=== PATIENT | female | born 1985 | race Caucasian/White ===

== ENCOUNTER 2016-12-28 20:56 | Emergency (ER) | payer SELFPAY ==
[~2016-12-28] VITALS: Ht 157.5 cm; Wt 68.1 kg
[~2016-12-28 20:56] MED LIST: ACHYD1T PO; ASP81TEC PO; ASPI-586 PO; DIAZ10TA PO; ENXP40I.4 SQ; FAMO-119 PO; FLUO20CA42 PO; HYDR1TAB75 PO; IBP800T PO; LORA1TAB PO; LYBREL PO; METO5TAB75 PO; MULT1CAP27 PO; NAPR1TAB21 PO; OLN2.5T PO; ONDA4TAB8 SL; ONDAN4ODT PO; PHEN177S38 MT; [UNRECOGNIZED DRUG - OTHER] PO
--- NOTE | 2016-12-28 21:25 | ED GU-Female ---
General Chief Complaint: -Female Stated Complaint: 5 WEEKS /SPOTTING/ABD PAIN Nursing Triage Note: States that she is 5 weeks . Started cramping and having dark brown spotting times 5 days. Cramping has incresed and spotting is bright red Nursing Sepsis Screen: No Definite Risk Source: patient Exam Limitations: no limitations History of Present Illness Time seen by provider: 21:24 Initial Comments 31-year-old female patient presents to the emergency department complaints of suprapubic cramping and dark brown spotting for 5 days. Patient reports today has noticed increased spotting with bright red blood noted. Last menstrual period was November 24, 2016. Patient states she is scheduled to see Dr. Sands in 2 weeks. Patient does report a history of a clotting disorder. Timing/Duration: getting worse, other (5 day onset) Severity/Quality: cramping Location: suprapubic Radiation: none Activities at Onset: none Prior Genitourinary Problems: similar symptoms Sexual [place] History: less than 2 months ago, single partner Modifying Factors: Worsens With Urinating Allergies and Home Medications Allergies Coded Allergies: No Known Drug Allergies (Unverified , 12/28/16) Constitutional: No chills, No dizziness, No fever, No malaise Respiratory: no symptoms reported Cardiovascular: no symptoms reported Gastrointestinal: see HPI, abdominal pain (suprapubic) Genitourinary: see HPI, denies burning, denies discharge, denies dysuria, denies frequency, denies flank pain, pain, other (vaginal spotting) : Yes LMP: Nov 24, 2016 Musculoskeletal: no symptoms reported Skin: no symptoms reported Psychiatric/Neurological: No Symptoms Reported Hematologic/Lymphatic: See HPI All Other Systemes Reviewed Negative Unless Noted: Yes (Negative excepted noted.) Past Mhiddyv-Aciuxx-Xacncf Hx Patient Social History Alcohol Use: Denies Use Recreational Drug Use: No Smoking Status: Never a Smoker Former Smoker/When Quit: Aug 29, 2010 2nd Hand Smoke Exposure: No Recent Foreign Travel: No Contact w/Someone Who Travel: No Recent Infectious Disease Expo: No Recent Hopitalizations: No Immunizations Up To Date Tetanus Booster (TDap): Less than 5yrs PED Vaccines UTD: Yes Date of Influenza Vaccine: May 14, 2012 Surgeries HX Surgeries: Yes (appendectomy, endometrial clean out, l ankle) Surgeries: Appendectomy, Gallbladder, Orthopedic, Tonsillectomy Respiratory Hx Respiratory Disorders: No Cardiovascular Hx Cardiac Disorders: No Neurological Hx Neurological Disorders: Yes (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 Hearing Impairment: Denies Cancer Hx Cancer: No Psychosocial Hx Psychiatric Problems: Yes Behavioral Health Disorders: Depression Integumentary HX Skin/Integumentary Disorder: Yes Skin/Integumentary Disorders: Eczema Blood Transfusions Hx Blood Disorders: Yes (unknown clotting disorder) Adverse Reaction to a Blood Tr: No Reviewed Nursing Assessment Reviewed/Agree w Nursing PMH: Yes Family Medical History Significant Family History: No Pertinent Family Hx Physical Exam Vital Signs Vital Sign - Last 12Hours 12/28/16 21:10 Temp 98.6 Pulse 79 Resp 18 B/P (MAP) 132/80 Pulse Ox 100 Capillary Refill : Less Than 3 Seconds General Appearance: WD/WN, no apparent distress HEENT: PERRL/EOMI, pharynx normal Neck: supple, normal inspection Cardiovascular: normal peripheral pulses, regular rate, rhythm, no edema, no murmur Respiratory: lungs clear, normal breath sounds, no respiratory distress Gastrointestinal: normal bowel sounds, soft, no organomegaly, No distended, No guarding, No rebound, tenderness (mild tenderness suprapubic and right adnexa) Pelvic: other (deferred) Back: normal inspection, no CVA tenderness Extremities: no pedal edema, normal capillary refill Neurologic/Psychiatric: alert, normal mood/affect, oriented x 3 Skin: normal color, warm/dry Progress/Results/Core Measures Results/Orders Lab Results Laboratory Tests Test 12/28/16 21:10 12/28/16 22:00 Range/Units Urine Color YELLOW Urine Clarity CLEAR Urine pH 7 5-9 Urine Specific [place] 1.010 L 1.016-1.022 Urine Protein NEGATIVE NEGATIVE Urine Glucose (UA) NEGATIVE NEGATIVE Urine Ketones NEGATIVE NEGATIVE Urine Nitrite NEGATIVE NEGATIVE Urine Bilirubin NEGATIVE NEGATIVE Urine Urobilinogen NORMAL NORMAL MG/DL Urine Leukocyte Esterase NEGATIVE NEGATIVE Urine RBC (Auto) 1+ H NEGATIVE Urine RBC 0-2 /HPF Urine WBC NONE /HPF Urine Squamous Epithelial Cells 0-2 /HPF Urine Crystals NONE /LPF Urine Bacteria NONE /HPF Urine Casts NONE /LPF Urine Mucus NEGATIVE /LPF Urine Culture Indicated NO White Blood Count 8.8 4.3-11.0 10^3/uL Red Blood Count 4.25 L 4.35-5.85 10^6/uL Hemoglobin 12.5 11.5-16.0 G/DL Hematocrit 38 35-52 % Mean Corpuscular Volume 89 80-99 FL Mean Corpuscular Hemoglobin 29 25-34 PG Mean Corpuscular Hemoglobin Concent 33 32-36 G/DL Red Cell Distribution Width 12.8 10.0-14.5 % Platelet Count 262 130-400 10^3/uL Mean Platelet Volume 9.2 7.4-10.4 FL Neutrophils (%) (Auto) 57 42-75 % Lymphocytes (%) (Auto) 31 12-44 % Monocytes (%) (Auto) 9 0-12 % Eosinophils (%) (Auto) 2 0-10 % Basophils (%) (Auto) 0 0-10 % Neutrophils # (Auto) 5.0 1.8-7.8 X 10^3 Lymphocytes # (Auto) 2.7 1.0-4.0 X 10^3 Monocytes # (Auto) 0.8 0.0-1.0 X 10^3 Eosinophils # (Auto) 0.2 0.0-0.3 10^3/uL Basophils # (Auto) 0.0 0.0-0.1 10^3/uL Prothrombin Time 12.4 12.2-14.7 SEC INR Comment 1.0 0.8-1.4 Activated Partial Thromboplast Time 30 24-35 SEC Sodium Level 140 135-145 MMOL/L Potassium Level 3.5 L 3.6-5.0 MMOL/L Chloride Level 110 H 98-107 MMOL/L Carbon Dioxide Level 22 21-32 MMOL/L Anion Gap 8 5-14 MMOL/L Blood Urea Nitrogen 5 L 7-18 MG/DL Creatinine 0.62 0.60-1.30 MG/DL Estimat Glomerular Filtration Rate > 60 BUN/Creatinine Ratio 8 Glucose Level 101 70-105 MG/DL Calcium Level 8.9 8.5-10.1 MG/DL Total Bilirubin 0.3 0.1-1.0 MG/DL Aspartate Amino Transf (AST/SGOT) 14 5-34 U/L Alanine Aminotransferase (ALT/SGPT) 11 0-55 U/L Alkaline Phosphatase 49 40-136 U/L Total Protein 6.6 6.4-8.2 G/DL Albumin 4.2 3.2-4.5 G/DL Human Chorionic Gonadotropin, Quant 72 H <5 MIU/ML My Orders Orders - WILNER REINOSO Ua Culture If Indicated (12/28/16 21:19) Urine Bedside (12/28/16 21:28) Cbc With Automated Diff (12/28/16 21:53) Comprehensive Metabolic Panel (12/28/16 21:53) Hcg,Quantitative (12/28/16 21:53) Protime With Inr (12/28/16 21:53) Partial Thromboplastin Time (12/28/16 21:53) Acetaminophen Tablet (Tylenol Tablet) (12/28/16 22:01) Us Ob Transvaginal [id number] (12/28/16 21:19) Vital Signs/I&O Vital Sign - Last 12Hours 12/28/16 12/28/16 21:10 23:25 Temp 98.6 98.6 Pulse 79 79 Resp 18 18 B/P (MAP) 132/80 Pulse Ox 100 100 Blood Pressure Mean: 97 Diagnostic Imaging Diagonstic Imaging: Ultrasound Plain Films/CT/US/NM/MRI: pelvis Comments status unknown. Correlate. No IUP. Endometrium measures 1.3 cm. Complex follicle/lesion measuring 1.6 cm and left ovary. No torsion. The right ovary is not visualized. Reviewed: Other (statrad report reviewed by me. ) Departure Communication Progress Notes Laboratory and diagnostic findings discussed with the patient. Plan for discharge to home with follow-up as an outpatient with Dr. Sands in the next 1-2 days. Patient to call tomorrow morning for appointment time. All return precautions were discussed with the patient as described in the discharge instructions of this report. Patient voices understanding and agrees with the treatment plan. Patient case discussed with Dr. Paniagua, he agrees with the plan of care. Impression Impression: Primary Impression: Threatened miscarriage in early Disposition: 01 HOME, SELF-CARE Condition: Improved Departure-Patient Inst. Decision time for Depature: 23:11 Referrals: NO,LOCAL PHYSICIAN (PCP) Primary Care Physician TIANA SANDS MD Patient Instructions: Threatened Miscarriage (DC) Add. Discharge Instructions: All discharge instructions reviewed with patient and/or family. Voiced understanding. Tylenol extra strength [id number] as directed for pain or headache if needed. Drink plenty of fluids. No intercourse, tampons, or strenuous activity answer released by Dr. Sands. Follow-up Dr. Sands in the next 1-2 days for recheck, scheduling outpatient repeat ultrasound, and repeat labs. Return to the emergency department for worsened pain, vaginal bleeding with greater than 2 pads per hour for greater than 2 hours, vaginal discharge, inability to urinate, vomiting, fever, or any other concerns. Work/School Note: Work Release Form Date Seen in the Emergency Department: December 28, 2016 Return to Work: December 30, 2016 Other Restrictions Listed Below: No strenuous activity until released by Dr. Sands. WILNER REINOSO December 28, 2016 21:25
[2016-12-28 21:26] LABS: BILIRUBIN,URINE NEGATIVE (NEGATIVE); KETONES,URINE NEGATIVE (NEGATIVE); LEUKOCYTE ESTERASE ,URINE NEGATIVE (NEGATIVE); NITRITE,URINE NEGATIVE (NEGATIVE); PH,URINE 7 (5-9); PROTEIN,URINE NEGATIVE (NEGATIVE); UROBILINOGEN,URINE NORMAL (NORMAL)
[2016-12-28 21:33] LABS: SQUAMOUS EPITHELIAL CELL,UR 0-2 /HPF
[2016-12-28] MEDS ORDERED: ACETAMINOPHEN 500 MG TAB (TYLENOL) PO STA (22:01)
[2016-12-28 22:13] LABS: BASOPHILS % (AUTO) 0 % (0-10); EOSINOPHILS # (AUTO) 0.2 10^3/uL (0.0-0.3); EOSINOPHILS % (AUTO) 2 % (0-10); LYMPHOCYTES # (AUTO) 2.7 X 10^3 (1.0-4.0); LYMPHOCYTES % (AUTO) 31 % (12-44); MEAN CORPUSCULAR HEMOGLOBIN 29 PG (25-34); MEAN CORPUSCULAR HGB CONC 33 G/DL (32-36); MEAN CORPUSCULAR VOLUME 89 FL (80-99); MEAN PLATELET VOLUME 9.2 FL (7.4-10.4); MONOCYTES # (AUTO) 0.8 X 10^3 (0.0-1.0); MONOCYTES % (AUTO) 9 % (0-12); NEUTROPHILS % (AUTO) 57 % (42-75); PLATELET COUNT 262 10^3/uL (130-400); RED BLOOD COUNT 4.25 10^6/uL (4.35-5.85); RED CELL DISTRIBUTION WIDTH 12.8 % (10.0-14.5); WHITE BLOOD COUNT 8.8 10^3/uL (4.3-11.0)
[2016-12-28 22:22] LABS: PROTHROMBIN TIME PATIENT 12.4 SEC (12.2-14.7)
[2016-12-28 22:30] LABS: ALANINE AMINOTRANSFERASE 11 U/L (0-55); ALBUMIN 4.2 G/DL (3.2-4.5); ANION GAP 8 MMOL/L (5-14); ASPARTATE AMINO TRANSFERASE 14 U/L (5-34); BILIRUBIN,TOTAL 0.3 MG/DL (0.1-1.0); BLOOD UREA NITROGEN 5 MG/DL (7-18); BUN/CREATININE RATIO 8; CALCIUM 8.9 MG/DL (8.5-10.1); CARBON DIOXIDE 22 MMOL/L (21-32); CHLORIDE 110 MMOL/L (98-107); CREATININE SERUM 0.62 MG/DL (0.60-1.30); GFR ESTIMATED > 60; GLUCOSE 101 MG/DL (70-105); POTASSIUM 3.5 MMOL/L (3.6-5.0); SODIUM 140 MMOL/L (135-145); TOTAL PROTEIN 6.6 G/DL (6.4-8.2)
[2016-12-28 23:25] VITALS: BP 132/80
--- NOTE | 2016-12-29 08:17 | Diagnostic Imaging Report ---
EXAMINATION: Transvaginal pelvic ultrasound. INDICATION: Spotting. Cramping. Right lower quadrant pain. OB ultrasound is ordered suggestive of positive test. Beta-hCG level is not provided. FINDINGS: The uterus is 7.6 x 4 x 4.9 CM. The endometrial stripe is 1.2 CM in thickness. There is no gestational sac identified. The right ovary is obscured by bowel gas. The left ovary demonstrates color flow with Doppler and measures 2.8 x 1.8 x 3 CM. Within the left ovary there is a 1.5 cm hypoechoic lesion with peripheral vascularity may relate to a corpus luteum cyst. IMPRESSION: No intrauterine . Differential may include failed , early normal or occult ectopic . Followup serial beta-hCG levels and followup ultrasound in a week is suggested. Dictated by: Dictated on workstation # [id number]
== END 2016-12-28 23:26 | disposition home or self-care (01) ==
LOC: EDUNIT# 20:56 → ER 21:00
DX: O20.0 Threatened abortion (principal); Z3A.01 Less than 8 weeks gestation of pregnancy
CPT/HCPCS: 36415; 76817; 80053; 81000; 84702; 84703; 85025; 85610; 85730; 99282

== ENCOUNTER 2016-12-31 19:30 | Emergency (ER) | payer SELFPAY ==
[~2016-12-31] VITALS: Ht 160 cm; Wt 72.6 kg
--- NOTE | 2016-12-31 20:01 | ED GU-Female ---
General Chief Complaint: -Female Stated Complaint: VAGINAL BLEEDING/5 WEEKS Nursing Triage Note: PT TO ED 9 W/ FAMILY FOR C/O POSS MISCARRIAGE. REPORTS SEEN IN THIS ED X4 DAYS AGO FOR SAME C/O. STATES NOW PASSING CLOTS Nursing Sepsis Screen: No Definite Risk Source: patient Exam Limitations: no limitations History of Present Illness Time seen by provider: 19:53 Initial Comments Here with report of increased vaginal bleeding today. Patient was seen a few days ago for the same and had ultrasound done. This did not show intrauterine but the quantitative hCG level was very low. She notes that she has had increasing bleeding and clots today. She is concerned about miscarriage. She does have lower bowel cramping right greater than left. She states that the bleeding has actually decreased some now. Timing/Duration: getting worse Severity/Quality: mild, moderate, cramping Location: RLQ, LLQ, suprapubic Radiation: none Activities at Onset: none Sexual [place] History: less than 2 months ago, single partner Associated Symptoms: abdominal pain, No fever/chills, No nausea/vomiting, No urinary frequency Allergies and Home Medications Allergies Coded Allergies: No Known Drug Allergies (Unverified , 12/28/16) Constitutional: see HPI, No chills, No fever Respiratory: no symptoms reported Cardiovascular: no symptoms reported Gastrointestinal: see HPI, No nausea, No vomiting Genitourinary: see HPI : Yes Musculoskeletal: no symptoms reported Skin: no symptoms reported Past Zoprjjn-Nbpzqx-Hyzbdt Hx Patient Social History Alcohol Use: Denies Use Recreational Drug Use: No Smoking Status: Never a Smoker Former Smoker/When Quit: Aug 29, 2010 2nd Hand Smoke Exposure: No Recent Foreign Travel: No Contact w/Someone Who Travel: No Recent Infectious Disease Expo: No Recent Hopitalizations: No Immunizations Up To Date Tetanus Booster (TDap): Less than 5yrs PED Vaccines UTD: Yes Date of Influenza Vaccine: May 14, 2012 Surgeries HX Surgeries: Yes (appendectomy, endometrial clean out, l ankle) Surgeries: Adenoidectomy, Appendectomy, Gallbladder, Orthopedic, Tonsillectomy Respiratory Hx Respiratory Disorders: No Cardiovascular Hx Cardiac Disorders: No Neurological Hx Neurological Disorders: Yes (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 Hearing Impairment: Denies Cancer Hx Cancer: No Psychosocial Hx Psychiatric Problems: Yes Behavioral Health Disorders: Depression Integumentary HX Skin/Integumentary Disorder: Yes Skin/Integumentary Disorders: Eczema Blood Transfusions Hx Blood Disorders: Yes (unknown clotting disorder) Adverse Reaction to a Blood Tr: No Reviewed Nursing Assessment Reviewed/Agree w Nursing PMH: Yes Family Medical History Significant Family History: No Pertinent Family Hx Physical Exam Vital Signs Vital Sign - Last 12Hours 12/31/16 19:36 Temp 99.2 Pulse 82 Resp 20 B/P (MAP) 115/79 Pulse Ox 99 O2 Delivery Room Air Capillary Refill : Less Than 3 Seconds General Appearance: WD/WN, no apparent distress Neck: full range of motion, supple Cardiovascular: regular rate, rhythm, no murmur Respiratory: lungs clear, normal breath sounds Gastrointestinal: non tender, soft Pelvic: normal external exam, normal adnexa, no cerv. motion tender, No discharge, No lesions, No mass, vaginal bleeding Back: normal inspection, no CVA tenderness, no vertebral tenderness Extremities: non-tender, normal inspection Neurologic/Psychiatric: alert, oriented x 3 Skin: normal color, warm/dry Progress/Results/Core Measures Results/Orders Lab Results Laboratory Tests Test 12/31/16 19:53 12/31/16 20:13 12/31/16 20:29 Range/Units White Blood Count 9.3 4.3-11.0 10^3/uL Red Blood Count 4.39 4.35-5.85 10^6/uL Hemoglobin 13.0 11.5-16.0 G/DL Hematocrit 40 35-52 % Mean Corpuscular Volume 90 80-99 FL Mean Corpuscular Hemoglobin 30 25-34 PG Mean Corpuscular Hemoglobin Concent 33 32-36 G/DL Red Cell Distribution Width 12.7 10.0-14.5 % Platelet Count 271 130-400 10^3/uL Mean Platelet Volume 9.5 7.4-10.4 FL Neutrophils (%) (Auto) 57 42-75 % Lymphocytes (%) (Auto) 32 12-44 % Monocytes (%) (Auto) 8 0-12 % Eosinophils (%) (Auto) 3 0-10 % Basophils (%) (Auto) 0 0-10 % Neutrophils # (Auto) 5.3 1.8-7.8 X 10^3 Lymphocytes # (Auto) 3.0 1.0-4.0 X 10^3 Monocytes # (Auto) 0.7 0.0-1.0 X 10^3 Eosinophils # (Auto) 0.3 0.0-0.3 10^3/uL Basophils # (Auto) 0.0 0.0-0.1 10^3/uL Sodium Level 142 135-145 MMOL/L Potassium Level 3.4 L 3.6-5.0 MMOL/L Chloride Level 108 H 98-107 MMOL/L Carbon Dioxide Level 24 21-32 MMOL/L Anion Gap 10 5-14 MMOL/L Blood Urea Nitrogen 7 7-18 MG/DL Creatinine 0.69 0.60-1.30 MG/DL Estimat Glomerular Filtration Rate > 60 BUN/Creatinine Ratio 10 Glucose Level 98 70-105 MG/DL Calcium Level 8.6 8.5-10.1 MG/DL Total Bilirubin 0.2 0.1-1.0 MG/DL Aspartate Amino Transf (AST/SGOT) 11 5-34 U/L Alanine Aminotransferase (ALT/SGPT) 7 0-55 U/L Alkaline Phosphatase 55 40-136 U/L Total Protein 6.7 6.4-8.2 G/DL Albumin 4.2 3.2-4.5 G/DL Human Chorionic Gonadotropin, Quant 20 H <5 MIU/ML Urine Color YELLOW Urine Clarity SLIGHTLY CLOUDY Urine pH 7 5-9 Urine Specific [place] 1.005 L 1.016-1.022 Urine Protein 1+ H NEGATIVE Urine Glucose (UA) NEGATIVE NEGATIVE Urine Ketones NEGATIVE NEGATIVE Urine Nitrite NEGATIVE NEGATIVE Urine Bilirubin NEGATIVE NEGATIVE Urine Urobilinogen NORMAL NORMAL MG/DL Urine Leukocyte Esterase 1+ H NEGATIVE Urine RBC (Auto) 5+ H NEGATIVE Urine RBC 50-100 H /HPF Urine WBC 2-5 /HPF Urine Squamous Epithelial Cells 2-5 /HPF Urine Crystals NONE /LPF Urine Bacteria FEW H /HPF Urine Casts NONE /LPF Urine Mucus NEGATIVE /LPF Urine Culture Indicated NO My Orders Orders - SHAUN DO MD Cbc With Automated Diff (12/31/16 19:48) Comprehensive Metabolic Panel (12/31/16 19:48) Hcg,Quantitative (12/31/16 19:48) Ua Culture If Indicated (12/31/16 20:01) Wet Prep (12/31/16 20:20) Neisseria Gonorrhea Dna (12/31/16 20:20) Chlamydia Dna (12/31/16 20:20) Genital Culture (12/31/16 20:20) Vital Signs/I&O Vital Sign - Last 12Hours 12/31/16 19:36 Temp 99.2 Pulse 82 Resp 20 B/P (MAP) 115/79 Pulse Ox 99 O2 Delivery Room Air Blood Pressure Mean: 91 Progress Note : Progress Note Seen and evaluated. Labs and UA ordered. Ultrasound results reviewed as well as previous visit labs. Monitor patient. Anticipate pelvic exam. This was completed. 2044: No significant findings on wet prep. Quantitative has decreased to 20. This is likely miscarriage. Discharged home with return precautions. Patient verbalize understanding instructions and agreement with plan. Departure Impression Impression: Primary Impression: Miscarriage Disposition: HOME, SELF-CARE Condition: Improved Departure-Patient Inst. Decision time for Depature: 20:51 Referrals: NO,LOCAL PHYSICIAN (PCP) Primary Care Physician Patient Instructions: Miscarriage (DC) Add. Discharge Instructions: All discharge instructions reviewed with patient and/or family. Voiced understanding. You may take ibuprofen 800 mg every 8 hours as needed for pain. You may take Tylenol 1000 mg every 8 hours as needed for pain. Follow-up with your OB doctor in a few days for recheck and further evaluation. Return for worse pain , fever, vomiting, weakness, bleeding greater than 2 pads per hour for more than 2 hours or other concerns as needed. SHAUN DO MD December 31, 2016 20:01
[2016-12-31 20:15] LABS: BASOPHILS % (AUTO) 0 % (0-10); EOSINOPHILS # (AUTO) 0.3 10^3/uL (0.0-0.3); EOSINOPHILS % (AUTO) 3 % (0-10); LYMPHOCYTES % (AUTO) 32 % (12-44); MEAN CORPUSCULAR HEMOGLOBIN 30 PG (25-34); MEAN CORPUSCULAR HGB CONC 33 G/DL (32-36); MEAN CORPUSCULAR VOLUME 90 FL (80-99); MEAN PLATELET VOLUME 9.5 FL (7.4-10.4); MONOCYTES # (AUTO) 0.7 X 10^3 (0.0-1.0); MONOCYTES % (AUTO) 8 % (0-12); NEUTROPHILS # (AUTO) 5.3 X 10^3 (1.8-7.8); NEUTROPHILS % (AUTO) 57 % (42-75); PLATELET COUNT 271 10^3/uL (130-400); RED BLOOD COUNT 4.39 10^6/uL (4.35-5.85); RED CELL DISTRIBUTION WIDTH 12.7 % (10.0-14.5); WHITE BLOOD COUNT 9.3 10^3/uL (4.3-11.0)
[2016-12-31 20:17] LABS: ALANINE AMINOTRANSFERASE 7 U/L (0-55); ALBUMIN 4.2 G/DL (3.2-4.5); ANION GAP 10 MMOL/L (5-14); ASPARTATE AMINO TRANSFERASE 11 U/L (5-34); BILIRUBIN,TOTAL 0.2 MG/DL (0.1-1.0); BLOOD UREA NITROGEN 7 MG/DL (7-18); BUN/CREATININE RATIO 10; CALCIUM 8.6 MG/DL (8.5-10.1); CARBON DIOXIDE 24 MMOL/L (21-32); CHLORIDE 108 MMOL/L (98-107); CREATININE SERUM 0.69 MG/DL (0.60-1.30); GFR ESTIMATED > 60; GLUCOSE 98 MG/DL (70-105); POTASSIUM 3.4 MMOL/L (3.6-5.0); SODIUM 142 MMOL/L (135-145); TOTAL PROTEIN 6.7 G/DL (6.4-8.2)
[2016-12-31 20:21] LABS: BILIRUBIN,URINE NEGATIVE (NEGATIVE); KETONES,URINE NEGATIVE (NEGATIVE); LEUKOCYTE ESTERASE ,URINE 1+ (NEGATIVE); NITRITE,URINE NEGATIVE (NEGATIVE); PH,URINE 7 (5-9); PROTEIN,URINE 1+ (NEGATIVE); UROBILINOGEN,URINE NORMAL (NORMAL)
[2016-12-31 20:57] VITALS: BP 113/84
== END 2016-12-31 20:57 | disposition home or self-care (01) ==
LOC: EDUNIT# 19:30 → ER 19:32
DX: O20.0 Threatened abortion (principal); Z3A.01 Less than 8 weeks gestation of pregnancy
CPT/HCPCS: 36415; 80053; 81000; 84702; 85025; 87070; 87210; 87491; 87591; 99284

== ENCOUNTER 2017-03-13 17:22 | Emergency (ER) | payer BC, OTHER ==
[~2017-03-13] VITALS: Ht 157.5 cm; Wt 72.6 kg
[2017-03-13] MEDS ORDERED: HYDROcodone/APAP 5 MG/325 MG (LORTAB) TAB ONE (19:48)
[2017-03-13] MEDS ORDERED: HYDROcodone/APAP 5 MG/325 MG (LORTAB) TAB PO ONE (20:00)
[2017-03-13] MEDS ORDERED: HYDR-3812 PO (20:20)
--- NOTE | 2017-03-13 20:20 | ED EENT ---
History of Present Illness General Chief Complaint: Dental Problems/Pain Stated Complaint: JAW SWELLING Nursing Triage Note: pt reports left/middle lower dental pain starting Monday. Started amoxicillin yesterday. Worse today, difficulty eating et drinking. She reports she chipped her tooth grinding them in her sleep. Source: patient Exam Limitations: no limitations History of Present Illness Time seen by provider: 19:43 Initial Comments This 31-year-old young lady presents to the emergency room with left lower anterior dental pain and suspected abscess. She started amoxicillin yesterday as prescribed by her father who is a physician. She has some chipped teeth due to grinding. The pain is rather intense today and she is having difficulty eating and drinking. She denies any fever. She has not yet seen a dentist. She has been taking Tylenol 3 and ibuprofen with insufficient relief. Allergies and Home Medications Allergies Coded Allergies: No Known Drug Allergies (Unverified , 12/28/16) Home Medications Hydrocodone/Acetaminophen 1 Each Tablet, 1 EACH PO Q6H PRN for PAIN, #10 Prescribed by: PETE WISEMAN on 03/13/172019 Review of Systems Constitutional: no symptoms reported Eyes: No Symptoms Reported Ears: No Symptoms Reported Nose: no symptoms reported Mouth: see HPI Throat: no symptoms reported Respiratory: no symptoms reported Cardiovascular: no symptoms reported Gastrointestinal: no symptoms reported : No Musculoskeletal: no symptoms reported Skin: no symptoms reported Neurological: No Symptoms Reported Past Eigqcll-Npoioh-Umvbxq Hx Patient Social History Alcohol Use: Denies Use Recreational Drug Use: No Smoking Status: Never a Smoker Former Smoker/When Quit: Aug 29, 2010 2nd Hand Smoke Exposure: No Recent Foreign Travel: No Contact w/Someone Who Travel: No Recent Infectious Disease Expo: No Recent Hopitalizations: No Immunizations Up To Date Tetanus Booster (TDap): Less than 5yrs PED Vaccines UTD: Yes Date of Influenza Vaccine: May 14, 2012 Seasonal Allergies Seasonal Allergies: No Surgeries HX Surgeries: Yes (appendectomy, endometrial clean out, l ankle) Surgeries: Adenoidectomy, Appendectomy, Gallbladder, Orthopedic, Tonsillectomy Respiratory Hx Respiratory Disorders: No Cardiovascular Hx Cardiac Disorders: No Neurological Hx Neurological Disorders: Yes (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 Hearing Impairment: Denies Cancer Hx Cancer: No Psychosocial Hx Psychiatric Problems: Yes Behavioral Health Disorders: Depression Integumentary HX Skin/Integumentary Disorder: Yes Skin/Integumentary Disorders: Eczema Blood Transfusions Hx Blood Disorders: Yes (factor V Leiden) Adverse Reaction to a Blood Tr: No Family Medical History Significant Family History: No Pertinent Family Hx Physical Exam Vital Signs Vital Sign - Last 12Hours 03/13/17 03/13/17 18:02 20:23 Temp 98.2 Pulse 107 Resp 14 B/P (MAP) 101/68 Pulse Ox 95 O2 Delivery Room Air General Appearance: WD/WN, no apparent distress Nose: normal inspection Mouth/Throat: pharynx normal, dental tenderness, other (palpable abscess on the anterior left lower gingiva) Neck: supple, normal inspection, No lymphadenopathy (R), No lymphadenopathy (L) Cardiovascular: regular rate, rhythm, no edema, no murmur Respiratory: lungs clear, normal breath sounds, no respiratory distress, no accessory muscle use Neurologic/Psychiatric: fur polisher II-XII nml as tested, no motor/sensory deficits, alert, normal mood/affect, oriented x 3 Skin: normal color, warm/dry I&D : Blade Size: 11 Progress Patient was locally anesthetized with approximately one mL of lidocaine with epinephrine. A tiny incision was placed directly over the area of maximal fluctuance of the abscess. A noticeable amount of thin purulent drainage was expressed from the incision. Patient tolerated the procedure reasonably well. Progress/Results/Core Measures Results/Orders My Orders Orders - PETE MENSAH MD Hydrocodone/Apap 5/325 Tablet (Lortab 5 (03/13/17 20:00) Hydrocodone/Apap 5/325 Tablet (Lortab 5 (03/13/17 19:48) Wound Culture (03/13/17 20:05) Medications Given in ED Vital Signs/I&O Blood Pressure Mean: 79 Progress Note : Progress Note Incision and drainage was performed. Patient was given hydrocodone for pain. Culture was collected. Departure Impression Impression: Primary Impression: Dental abscess Additional Impression: Encounter for incision and drainage procedure Disposition: HOME, SELF-CARE Condition: Improved Departure-Patient Inst. Decision time for Depature: 20:05 Referrals: KRISTEN GRANT MD (PCP/Family) Primary Care Physician Patient Instructions: Tooth Abscess (DC) Add. Discharge Instructions: For your next dose of amoxicillin please take 1000 mg. Then continue as prescribed. You may take ibuprofen up to 600 mg every 6 hours as needed. Add hydrocodone for pain not controlled by ibuprofen. See a dentist as soon as possible. Return to care if symptoms are worsening. All discharge instructions reviewed with patient and/or family. Voiced understanding. Scripts Hydrocodone/Acetaminophen (Hydrocodon -Acetaminophen 5-325) 1 Each Tablet 1 EACH PO Q6H Y for PAIN, #10 TAB Prov: PETE MENSAH MD 03/13/17 PETE MENSAH MD Mar 13, 2017 20:20
[2017-03-13 20:23] VITALS: BP 106/67
== END 2017-03-13 20:23 | disposition home or self-care (01) ==
LOC: EDUNIT# 17:22 → ER 17:23
DX: K04.7 Periapical abscess without sinus (principal); F32.9 Major depressive disorder, single episode, unspecified; Z90.49 Acquired absence of other specified parts of digestive tract; Z86.73 Personal history of transient ischemic attack (TIA), and cerebral infarction without residual deficits
CPT/HCPCS: 87070; 87205; 99283

== ENCOUNTER 2017-04-04 07:59 | Emergency (ER) | payer BC ==
[~2017-04-04] VITALS: Ht 157.5 cm; Wt 71.7 kg
[~2017-04-04 07:59] MED LIST changes: +HYDR-3812 PO
[2017-04-04 09:19] LABS: BASOPHILS % (AUTO) 0 % (0-10); EOSINOPHILS # (AUTO) 0.1 10^3/uL (0.0-0.3); EOSINOPHILS % (AUTO) 2 % (0-10); LYMPHOCYTES # (AUTO) 1.6 X 10^3 (1.0-4.0); LYMPHOCYTES % (AUTO) 21 % (12-44); MEAN CORPUSCULAR HEMOGLOBIN 29 PG (25-34); MEAN CORPUSCULAR HGB CONC 33 G/DL (32-36); MEAN CORPUSCULAR VOLUME 89 FL (80-99); MEAN PLATELET VOLUME 9.3 FL (7.4-10.4); MONOCYTES # (AUTO) 0.6 X 10^3 (0.0-1.0); MONOCYTES % (AUTO) 7 % (0-12); NEUTROPHILS # (AUTO) 5.5 X 10^3 (1.8-7.8); NEUTROPHILS % (AUTO) 70 % (42-75); PLATELET COUNT 263 10^3/uL (130-400); RED BLOOD COUNT 4.38 10^6/uL (4.35-5.85); RED CELL DISTRIBUTION WIDTH 12.8 % (10.0-14.5); WHITE BLOOD COUNT 7.9 10^3/uL (4.3-11.0)
--- NOTE | 2017-04-04 09:23 | Diagnostic Imaging Report ---
CLINICAL INDICATION: Patient with calf pain, headache, and history of clot behind eye. COMPARISON: None. PROCEDURE: Real-time left lower extremity venous Doppler duplex evaluation is performed from the inguinal region through the popliteal fossa. The calf venous structures are also evaluated. Findings: The deep venous system is well visualized and is easily compressible. There is no evidence of deep venous thrombosis, valvular incompetence, or significant collateral circulation. Impression: There is no ultrasound Doppler evidence of deep venous thrombosis in the left lower extremity. Dictated by: Dictated on workstation # [id number]
[2017-04-04 09:32] LABS: INR 0.9 (0.8-1.4); PROTHROMBIN TIME PATIENT 12.2 SEC (12.2-14.7)
[2017-04-04 09:37] LABS: ANION GAP 8 MMOL/L (5-14); BLOOD UREA NITROGEN 9 MG/DL (7-18); BUN/CREATININE RATIO 15; CALCIUM 9.1 MG/DL (8.5-10.1); CARBON DIOXIDE 23 MMOL/L (21-32); CHLORIDE 109 MMOL/L (98-107); CREATININE SERUM 0.59 MG/DL (0.60-1.30); GFR ESTIMATED > 60; GLUCOSE 92 MG/DL (70-105); POTASSIUM 3.8 MMOL/L (3.6-5.0); SODIUM 140 MMOL/L (135-145)
--- NOTE | 2017-04-04 10:24 | Diagnostic Imaging Report ---
CLINICAL INDICATION: Patient with headaches behind both eyes radiating to back of head. EXAM: Axial CT scan of brain performed without IV contrast. COMPARISON: MRI of the brain performed without and with IV contrast dated 12/15/2010. FINDINGS: There is no evidence of acute cerebral infarct, intracranial hemorrhage, or gross mass effect. There is normal mcghee-white matter distinction. The brain parenchymal volume appears appropriate for patient's age. There is no significant midline shift or herniation. There is no evidence of hydrocephalus. The basal cisterns are unremarkable. The skull, extracranial soft tissue, and orbits are unremarkable. The paranasal sinuses are unremarkable. IMPRESSION: Unremarkable CT scan of the brain. Dictated by: Dictated on workstation # [id number]
[2017-04-04] MEDS ORDERED: ONDA4TAB8 PO (10:36)
[2017-04-04] MEDS ORDERED: KETO10TA PO (10:36)
[2017-04-04] MEDS ORDERED: BUTA1CAP45 PO (10:36)
--- NOTE | 2017-04-04 10:36 | ED General ---
General Chief Complaint: Lower Extremity Stated Complaint: HEADACHE,LEFT CALF PAIN Nursing Triage Note: PT C/O L CALF PAIN SINCE LAST NOC. SHE REPORTS HX OF DVT'S. SHE STATES SHE IS CONCERNED FOR CLOT SHE HAS FACTOR V LEIDEN. SHE ALSO C/O STARK X 2 DAYS. Nursing Sepsis Screen: No Definite Risk Source of Information: Patient History of Present Illness Time Seen by Provider: 08:15 Initial Comments PT C/O LEFT CALF PAIN SINCE LAST PM PT HAS HX OF DVT'S TO LEGS, WITH HX OF FACTOR 5 LEIDEN DEFICIENCY PT STATES HER DR TOLD HER TO STOP TAKING ASPIRIN 2 WEEKS AGO--"DIDN'T THINK IT WOULD HELP" NO NEW RX GIVEN FOR PREVENTION OF DVT'S NO PARESTHESIAS OR MOTOR DEFICITS NO NEW/UNUSUAL ACTIVITIES, NO PROLONGED TRAVEL OR SITTING PT ALSO C/O HEADACHE X 2 DAYS HEADACHE IS BEHIND BOTH EYES AND RADIATES THROUGH TO OCCIPITAL AREA STATES SHE HAS HAD ONGOING PROBLEMS WITH HEADACHES FOR SEVERAL MONTHS, BUT WORSE X 2 DAYS HAS NOT TAKEN ANYTHING FOR PAIN TODAY, BUT TOOK TYLENOL #3 YESTERDAY WITHOUT IMPROVEMENT. STATES HEADACHES ARE BETTER/GO AWAY ON STANDING, AND ARE WORSE WITH SITTING NO LIGHT OR SOUND SENSITIVITY NO NAUSEA/VOMITING NO VISION CHANGES NO PARESTHESIAS OR MOTOR DEFICITS NO NECK PAIN OR STIFFNESS NO FEVER OR RECENT ILLNESS, URI/SINUS SYMPTOMS, ETC. NO DIZZINESS PCP: DR. Radha GRANT PT'S FATHER IS DR. FISCHER Allergies and Home Medications Allergies Coded Allergies: No Known Drug Allergies (Unverified , 12/28/16) Home Medications Butalb/Acetaminophen/Caffeine 1 Each Capsule, 1-2 EACH PO Q6H PRN for HEADACHE, #10 Prescribed by: RANI PHIPPS on 04/04/17 1036 Hydrocodone/Acetaminophen 1 Each Tablet, 1 EACH PO Q6H PRN for PAIN, #10 Prescribed by: PETE WISEMAN on 03/13/17 2020 Ketorolac Tromethamine 10 Mg Tablet, 10 MG PO Q6H, #15 Prescribed by: RANI PHIPPS on 04/04/17 1036 Ondansetron 4 Mg Tab.rapdis, 4 MG PO Q4H, #10 Prescribed by: RANI PHIPPS on 04/04/17 1036 Constitutional: No dizziness, No fever EENTM: see HPI Respiratory: no symptoms reported Cardiovascular: no symptoms reported Gastrointestinal: no symptoms reported Genitourinary: no symptoms reported : No LMP: Mar 28, 2017 (NO CONTROL) Musculoskeletal: see HPI Skin: no symptoms reported Psychiatric/Neurological: See HPI, Headache, Denies Numbness, Denies Paresthesia, Denies Seizure, Denies Tingling, Denies Tremors, Denies Weakness Hematologic/Lymphatic: See HPI Immunological/Allergic: no symptoms reported Past Mvzhacz-Xkmpvo-Hzpgpt Hx Patient Social History Alcohol Use: Rarely Uses Recreational Drug Use: No Smoking Status: Former Smoker Type Used: Cigarettes 2nd Hand Smoke Exposure: No Recent Foreign Travel: No Contact w/Someone Who Travel: No Recent Infectious Disease Expo: No Recent Hopitalizations: No Physical Abuse: No Sexual Abuse: No Immunizations Up To Date Tetanus Booster (TDap): Less than 5yrs PED Vaccines UTD: Yes Date of Influenza Vaccine: May 14, 2012 Seasonal Allergies Seasonal Allergies: No Surgeries History of Surgeries: Yes (endometrial clean out X 3; LAPAROSCOPIES, LYSIS OF ENDOMETRIOSIS; D&C'S) Surgeries: Adenoidectomy, Appendectomy, Gallbladder, Orthopedic, Tonsillectomy Respiratory History of Respiratory Disorde: No Cardiovascular History of Cardiac Disorders: Yes Cardiac Disorders: Deep Vein Thrombosis Neurological History of Neurological Disord: Yes (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 ) Neurological Disorders: Stroke Reproductive System : No Hx Reproductive Disorders: Yes (ENDOMETRIOSIS; CHRONIC PELVIC PAIN AND DUB) Sexually Transmitted Disease: No HIV/AIDS: No Female Reproductive Disorders: Denies, Endometriosis Genitourinary History of Genitourinary Disor: No Gastrointestinal History of Gastrointestinal Di: No Musculoskeletal History of Musculoskeletal Dis: No Endocrine History of Endocrine Disorders: No HEENT History of HEENT Disorders: No Loss of Vision: Left Hearing Impairment: Denies Cancer History of Cancer: No Psychosocial History of Psychiatric Problem: Yes Behavioral Health Disorders: Depression Suicide Risk Score: 0 Integumentary History of Skin or Integumenta: Yes Skin/Integumentary Disorders: Eczema Blood Transfusions History of Blood Disorders: Yes (factor V Leiden WITH DVT'S ) Adverse Reaction to a Blood Tr: No Family Medical History Significant Family History: No Pertinent Family Hx Physical Exam Vital Signs Vital Sign - Last 12Hours 04/04/17 08:12 Temp 98.1 Pulse 92 Resp 16 B/P (MAP) 122/85 Pulse Ox 97 O2 Delivery Room Air Capillary Refill : Less Than 3 Seconds General Appearance: No Apparent Distress, WD/WN HEENT: PERRL/EOMI, TMs Normal, Normal ENT Inspection, Pharynx Normal Neck: Full Range of Motion, Supple, Tender Lateral (MILD TENDERNESS AND MUSCLE SPASMS TO CERVICAL PARAVERTEBRAL MUSCLES. ), Other (FULL ROM, NO RIGIDITY) Respiratory: Normal Breath Sounds, No Accessory Muscle Use, No Respiratory Distress Cardiovascular: Regular Rate, Rhythm, No Edema, No JVD, No Murmur, Normal Peripheral Pulses Gastrointestinal: Non Tender, Soft Extremity: Normal Capillary Refill, Normal Inspection, Normal Range of Motion, No Pedal Edema, Calf Tenderness (ON LEFT), No Swelling Neurologic/Psychiatric: Alert, Oriented x3 Skin: Normal Color, Warm/Dry Progress/Results/Core Measures Results/Orders Lab Results Laboratory Tests Test 04/04/17 09:12 Range/Units White Blood Count 7.9 4.3-11.0 10^3/uL Red Blood Count 4.38 4.35-5.85 10^6/uL Hemoglobin 12.7 11.5-16.0 G/DL Hematocrit 39 35-52 % Mean Corpuscular Volume 89 80-99 FL Mean Corpuscular Hemoglobin 29 25-34 PG Mean Corpuscular Hemoglobin Concent 33 32-36 G/DL Red Cell Distribution Width 12.8 10.0-14.5 % Platelet Count 263 130-400 10^3/uL Mean Platelet Volume 9.3 7.4-10.4 FL Neutrophils (%) (Auto) 70 42-75 % Lymphocytes (%) (Auto) 21 12-44 % Monocytes (%) (Auto) 7 0-12 % Eosinophils (%) (Auto) 2 0-10 % Basophils (%) (Auto) 0 0-10 % Neutrophils # (Auto) 5.5 1.8-7.8 X 10^3 Lymphocytes # (Auto) 1.6 1.0-4.0 X 10^3 Monocytes # (Auto) 0.6 0.0-1.0 X 10^3 Eosinophils # (Auto) 0.1 0.0-0.3 10^3/uL Basophils # (Auto) 0.0 0.0-0.1 10^3/uL Prothrombin Time 12.2 12.2-14.7 SEC INR Comment 0.9 0.8-1.4 Activated Partial Thromboplast Time 31 24-35 SEC Sodium Level 140 135-145 MMOL/L Potassium Level 3.8 3.6-5.0 MMOL/L Chloride Level 109 H 98-107 MMOL/L Carbon Dioxide Level 23 21-32 MMOL/L Anion Gap 8 5-14 MMOL/L Blood Urea Nitrogen 9 7-18 MG/DL Creatinine 0.59 L 0.60-1.30 MG/DL Estimat Glomerular Filtration Rate > 60 BUN/Creatinine Ratio 15 Glucose Level 92 70-105 MG/DL Calcium Level 9.1 8.5-10.1 MG/DL Serum Test, Qualitative NEGATIVE NEGATIVE My Orders Orders - RANI PHIPPS DO Basic Metabolic Panel (04/04/17 08:22) Cbc With Automated Diff (04/04/17 08:22) Hcg,Qualitative Serum (04/04/17 08:22) Protime With Inr (04/04/17 08:22) Partial Thromboplastin Time (04/04/17 08:22) Us Venous Lower Ext Lt (04/04/17 08:22) Ct Head Wo (04/04/17 08:22) Ketorolac Injection (Toradol Injection) (04/04/17 10:45) Medications Given in ED Current Medications Medications Dose Ordered Sig/Pam Route Start Time Stop Time Status Last Admin Dose Admin Ketorolac Tromethamine 60 mg ONCE ONCE IM 04/04/17 10:45 04/04/17 10:46 DC 04/04/17 10:45 60 MG Vital Signs/I&O Vital Sign - Last 12Hours 04/04/17 04/04/17 08:12 10:49 Temp 98.1 98.1 Pulse 92 85 Resp 16 16 B/P (MAP) 122/85 Pulse Ox 97 97 O2 Delivery Room Air Blood Pressure Mean: 97 Progress Note : Progress Note NO DETERIORATION IN PT'S CONDITION DURING ER STAY Diagnostic Imaging Comments VENOUS DOPPLER/ULTRASOUND LEFT LEG--NO DVT, PER RADIOLOGIST REPORT @ 0924 CT HEAD--NO ACUTE PROCESS, PER RADIOLOGIST REPORT @ 1031 Reviewed: Reviewed by Me Departure Impression Impression: Primary Impression: Headache Additional Impression: Pain of left calf Disposition: HOME, SELF-CARE Condition: Stable Departure-Patient Inst. Referrals: KRISTEN GRANT MD (PCP/Family) Primary Care Physician Patient Instructions: Headache, Adult (DC), Muscle and Bone Pain (DC) Add. Discharge Instructions: ALTERNATE ICE AND HEAT TO LEG NEEDED FOR COMFORT ACTIVITIES TOLERATED FOLLOW UP WITH DR. GRANT NEXT WEEK FOR FURTHER CARE All discharge instructions reviewed with patient and/or family. Voiced understanding. Scripts Ondansetron (Zofran Odt) 4 Mg Tab.rapdis 4 MG PO Q4H for Nausea/Vomiting, #10 TAB Prov: RANI PHIPPS DO 04/04/17 Ketorolac Tromethamine (Ketorolac Tromethamine) 10 Mg Tablet 10 MG PO Q6H for Pain, #15 TAB Prov: RANI PHIPPS DO 04/04/17 Butalb/Acetaminophen/Caffeine (Esgic Capsule) 1 Each Capsule 1-2 EACH PO Q6H Y for HEADACHE, #10 CAP Prov: RANI PHIPPS DO 04/04/17 RANI PHIPPS DO Apr 04, 2017 10:36
[2017-04-04] MEDS ORDERED: KETOROLAC 60 MG/2 ML VIAL IM ONE (10:45)
[2017-04-04 10:49] VITALS: BP 124/80
== END 2017-04-04 10:49 | disposition home or self-care (01) ==
LOC: EDUNIT# 07:59 → ER 08:02
DX: M79.662 Pain in left lower leg (principal); R51 Headache; F32.9 Major depressive disorder, single episode, unspecified; Z87.891 Personal history of nicotine dependence; Z90.49 Acquired absence of other specified parts of digestive tract; Z90.89 Acquired absence of other organs; Z86.718 Personal history of other venous thrombosis and embolism; Z86.73 Personal history of transient ischemic attack (TIA), and cerebral infarction without residual deficits; Z87.448 Personal history of other diseases of urinary system
CPT/HCPCS: 36415; 70450; 80048; 84703; 85025; 85610; 85730; 96372; 99284

== ENCOUNTER 2020-06-08 07:00 | Inpatient (IN) | payer MEDICAID ==
[~2020-06-08] VITALS: Ht 157.5 cm; Wt 85.5 kg
[2020-06-08] VITALS (52 sets, daily range): BP systolic 88–142; BP diastolic 50–78
[~2020-06-08 07:00] MED LIST changes: +ACHD5005 PO; +BUTA1CAP45 PO; -HYDR-3812 PO; +KETO10TA PO; +ONDA4TAB8 PO
--- NOTE | 2020-06-08 07:05 | NUR ---
UZAIR FISCHER presented to unit via ambulation from ED, accompanied by , for schedule IOL. Pt. weighed, gowned, voided, and to bed. EFHM and TOCO applied, VS taken. Pt. oriented to bed controls, call light, TV, heat, and A/C controls.
--- NOTE | 2020-06-08 07:33 | NUR ---
#20 IV to Rt.wrist x1 attempt by this RN. site patent, secured with opsite. admission labs collected prior to IVF's infusing. pt tolerated well.
[2020-06-08] MEDS ORDERED: OXYTOCIN PRE-MIX DRIP 500 ML IV SCH ×2 (07:43→18:37)
--- NOTE | 2020-06-08 07:43 | History & Physical ---
History and Physical Date Seen by Provider: Jun 08, 2020 Time Seen by Provider: 07:41 this patient is a 34-year-old 2 para 1 white female currently at 38 weeks gestation. She presents for induction of labor secondary to history of optic stroke and currently maintained on Lovenox. She denies rupture membranes or bleeding she's had no problems with his to date. Her GBS culture negative. Allergies are none Medications are vitamins Medical social and surgical histories are per the antepartum record HEENT exam is normal Neck is supple no lymphadenopathy and no thyromegaly Abdomen is gravid soft nontender nondistended Extremities show no clubbing cyanosis. There is no Homans sign. 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 She had her last dose of Lovenox yesterday morning in preparation for induction of labor today patient has had a vaginal delivery with her previous with anticipate a vaginal delivery with this induction 38 weeks admitted for induction of labor due to chronic anticoagulation and a history of optic stroke Allergies and Home Medications Allergies Coded Allergies: No Known Drug Allergies (Unverified , 12/28/16) Home Medications Butalb/Acetaminophen/Caffeine 1 Each Capsule, 1-2 EACH PO Q6H PRN for HEADACHE Prescribed by: RANI PHIPPS on 04/04/17 1036 Hydrocodone Bit/Acetaminophen 1 Each Tablet, 1 EACH PO Q6H PRN for PAIN Prescribed by: PETE WISEMAN on 03/13/172019 Ketorolac Tromethamine 10 Mg Tablet, 10 MG PO Q6H Prescribed by: RANI PHIPPS on 04/04/17 103 Ondansetron 4 Mg Tab.rapdis, 4 MG PO Q4H Prescribed by: RANI PHIPPS on 04/04/17 1036 Patient Home Medication List Home Medication List Reviewed: Yes TIANA JOLLY MD Jun 08, 2020 07:43
[2020-06-08] MEDS ORDERED: OXYTOCIN PRE-MIX DRIP 500 ML IV ONE (07:46)
[2020-06-08] MEDS ORDERED: D5 LR IV SOLUTION 1,000 ML IV ONE (07:46)
[2020-06-08] MEDS: D5 LR IV SOLUTION 1,000 ML IV SCH ×2 (07:55→14:29)
[2020-06-08 08:00] LABS: BASOPHILS # (AUTO) 0.1 10^3/uL (0.0-0.1); BASOPHILS % (AUTO) 0 % (0-10); EOSINOPHILS # (AUTO) 0.2 10^3/uL (0.0-0.3); EOSINOPHILS % (AUTO) 1 % (0-10); HEMATOCRIT 34 % (35-52); HEMOGLOBIN 11.7 g/dL (11.5-16.0); LYMPHOCYTES # (AUTO) 2.7 10^3/uL (1.0-4.0); LYMPHOCYTES % (AUTO) 16 % (12-44); MEAN CORPUSCULAR HEMOGLOBIN 31 pg (25-34); MEAN CORPUSCULAR HGB CONC 34 g/dL (32-36); MEAN CORPUSCULAR VOLUME 91 fL (80-99); MEAN PLATELET VOLUME 9.6 fL (9.0-12.2); MONOCYTES # (AUTO) 1.2 10^3/uL (0.0-1.0); MONOCYTES % (AUTO) 7 % (0-12); NEUTROPHILS # (AUTO) 12.5 10^3/uL (1.8-7.8); NEUTROPHILS % (AUTO) 73 % (42-75); PLATELET COUNT 274 10^3/uL (130-400); WHITE BLOOD COUNT 17.1 10^3/uL (4.3-11.0)
[2020-06-08 08:30] LABS: BAND NEUTROPHILS 2 %; BASOPHILS % (MANUAL) 0 %; EOSINOPHILS % (MANUAL) 0 %; LYMPHOCYTES % (MANUAL) 16 %; MONOCYTES % (MANUAL) 6 %; NEUTROPHILS % (MANUAL) 76 %; RBC MORPH NORMAL
--- NOTE | 2020-06-08 08:54 | NUR ---
anesthesia notified of pt's request for epidural placement
--- NOTE | 2020-06-08 09:09 | NUR ---
ALEXANDRA Carvajal here for epidural placement. Procedure explained, consent reviewed and signed by anesthesia. Questions answered to patient's satisfaction. Time out taken to verify correct patient/procedure. 0914- Patient up to side of bed, assisted into sitting position. Betadine prep done x3 and sterile drape applied. 0920- Local done, see anesthesia record. 0922- Test dose given, see anesthesia record for drug and dosage. Epidural catheter secured in place. Epidural placement complete. 0929- Assisted back into bed, monitors adjusted. Epidural dosed, see anesthesia record. Epidural of Sufenta/Bupvicaine @12cc/hr stated per pump. Patient tolerated procedure well.
[2020-06-08] MEDS ORDERED: fentaNYL 2 mcg/ml BUPIVA 0.125 100 ML ONE (09:10)
[2020-06-08] MEDS ORDERED: fentaNYL INJECTION 100 MCG/2 ML AMP ONE (09:30)
[2020-06-08] MEDS ORDERED: LACTATED RINGERS 1,000 ML IV ONE (09:55)
[2020-06-08] MEDS ORDERED: EPIDURAL (fentaNYL 2 MCG/ML BUPIVA 0.125%)100 ML BAG EPI PRN (10:00)
[2020-06-08] MEDS ORDERED: ONDANSETRON 4 MG/2 ML (SDV) Z0FRAN IV PRN (10:00)
[2020-06-08] MEDS ORDERED: METOCLOPRAMIDE INJ 10 MG/2 ML (REGLAN) IV PRN (10:00)
[2020-06-08] MEDS ORDERED: NALOXONE 0.4 MG/ML 1 ML (NARCAN) VIAL IV PRN ×2 (10:00)
[2020-06-08] MEDS ORDERED: diphenhydrAMINE 50 MG/ML INJ (BENADRYL) IV PRN (10:00)
[2020-06-08] MEDS ORDERED: LIDOCAINE/EPI 2% 1:200,00 (XYLOCAINE) 10 ML VIAL ONE (16:20)
[2020-06-08] MEDS ORDERED: TETANUS,DIPTH,PERTUSS P/F (BOOSTRIX) 0.5 ML VIAL IM ONE (18:45)
[2020-06-08] MEDS ORDERED: oxyCODONE/APAP 5/325MG (PERCOCET 5) TABLET PO PRN (18:45)
[2020-06-08] MEDS ORDERED: ONDANSETRON 4 MG/2 ML (SDV) Z0FRAN IVP PRN (18:45)
[2020-06-08] MEDS ORDERED: BENZOCAINE/MENTHOL (DERMOPLAST) 60 ML CAN TP PRN (18:45)
[2020-06-08] MEDS ORDERED: MEASLES,MUMPS,RUBELLA 1 EA INJ SC ONE (18:45)
[2020-06-08] MEDS: KETOROLAC 30 MG/ML VIAL IVP SCH (19:13)
--- NOTE | 2020-06-08 19:20 | NUR ---
report given to NEFTALI Simental.
--- NOTE | 2020-06-08 20:00 | NUR ---
vss, see int, pt to standby and transferred to pp room, this rn remains caring for pt. denies needs, oriented to call system and surroundings, understanding voiced per pt. pt reports wanting to sleep and will ring call light when ready to go see in nsy.
--- NOTE | 2020-06-08 21:40 | NUR ---
Pt up to void, first void noted since delivery, no issues noted, pt to and transferred to [facility] at this time.
--- NOTE | 2020-06-09 02:31 | OPERATIVE REPORT ---
DATE OF SERVICE: 06/08/2020 DELIVERY NOTE The patient delivered by term spontaneous vaginal delivery at 38 weeks' gestation, a viable male infant with Apgars of 3, 7 and 9 at 1, 5 and 10 minutes respectively, weight of 7 pounds 7 ounces. Cord blood pH of 7.1 and a time of 1812. The had a category 1 heart rate tracing until she started pushing and it progress to category 2 and in the terminal stages, had a prolonged decel. The patient was moving the baby well. Episiotomy was performed in order to expedite the second stage of labor secondary to decreased heart rate. The infant was born promptly on performance of the episiotomy. The was bulb suctioned on delivery of the head, was dried and resuscitated and when the umbilical cord became pulseless, it was doubly clamped, the father cut the cord and the baby was taken to the warmer after being transilluminated placed on mom's abdomen. The pediatric nurse was in attendance at the mom to evaluate and resuscitate the baby as it was a tight, somewhat prolonged terminal second stage. The infant was pinking nicely on the umbilical cord, but was a little bit lethargic from the supression. The placenta delivered spontaneously Isabel. It was normal with a 3-vessel cord. It was sent to pathology for permanent section. The cervix, vagina, rectum, and perineum were examined and found intact except for the midline episiotomy, which was repaired with a single suture of 3-0 Vicryl Rapide in the usual manner to good hemostasis and good reapproximation. The patient tolerated the delivery and the repair well and remained in the LDR. The baby was taken to the full term nursery under the care of the pediatric nurse and the stockfeed miller had been called to assess the baby secondary to its suppressed state. Job ID: [id number] DocumentID: [id number] Dictated Date: 06/08/2020 20:18:37 Data Warehousing Architect Date: 06/09/2020 02:30:44 Dictated By: TIANA JOLLY MD MTDD
[2020-06-09 02:50] VITALS: BP 98/55
[2020-06-09] MEDS: KETOROLAC 30 MG/ML VIAL IVP SCH (02:52)
--- NOTE | 2020-06-09 07:57 | Anesthesia-Regional Post-Op ---
Regional Patient Condition Mental Status: Alert, Oriented x3 Circulation: Same as Pre-Op Headache: Absent Sensation: Full Recovery Motor Block: Absent Post Op Complications Complications None Follow Up Care/Instructions Patient Instructions None needed. Anesthesia/Patient Condition Patient is doing well, no complaints, stable vital signs, no apparent adverse anesthesia problems. No complications reported per nursing. ESA NEELY CRNA Jun 09, 2020 07:57
--- NOTE | 2020-06-09 08:00 | NUR ---
PT IN NURSERY HOLDING .
--- NOTE | 2020-06-09 08:06 | Progress Note ---
Standard Progress Note Progress Notes/Assess & Plan Date Seen by a Provider: Jun 09, 2020 Time Seen by a Provider: 08:05 Progress/Assessment & Plan this patient is without complaint. She is ambulating, voiding, tolerating oral intake well has good pain control. Vital Signs 06/08/20 06/09/20 18:00 02:50 Temp 37.2 Pulse 76 Resp 18 B/P (MAP) 98/55 (69) Pulse Ox 98 O2 Delivery Room Air O2 Flow Rate 15.00 vital signs are stable. Patient is afebrile. Fundus is firm below the umbilicus nontender. Extremities show no clubbing or cyanosis. There is no Homans sign. Assessment and plan day number 1 status post term spontaneous vaginal delivery at 38+ weeks gestation. Patient will have routine convalescence care Final Diagnosis 38 week spontaneous vaginal delivery TIANA JOLLY MD Jun 09, 2020 08:06
[2020-06-09] MEDS ORDERED: IBUP-1780 PO (08:11)
[2020-06-09] MEDS ORDERED: OXYC1TAB87 PO (08:11)
[2020-06-09] MEDS ORDERED: DCS100C PO (08:11)
--- NOTE | 2020-06-09 08:11 | Discharge Inst-Surgical ---
Discharge Inst-Surgical Depart Medication/Instructions New, Converted or Re-Newed RX: RX on Chart Consults/Follow Up Patient Instructions: as directed Orders & Referrals Follow Up Appt: Call to make follow up appt. for patient in 4 weeks. Activity Per routine post vaginal delivery instructions. Please call in RX to patient pharmacy. resume Lovenox AND CONTINUE UNTIL 4-6 WEEKS Diet as tolerated Patient may shower or tub bathe as desired. Activity Activity as Tolerated: No Diet Discharge Diet: No Restrictions TIANA JOLLY MD Jun 09, 2020 08:11
[2020-06-09] MEDS ORDERED: ENOXAPARIN 40 MG/0.4 ML (LOVENOX) SYR SC NR (08:15)
[2020-06-09] MEDS: IBUPROFEN 800 MG (MOTRIN) TAB PO SCH ×3 (08:50→20:56)
[2020-06-09] MEDS: DOCUSATE SODIUM 100 MG (COLACE) CAP PO SCH ×2 (08:50→20:56)
[2020-06-09 09:30] VITALS: BP 106/58
--- NOTE | 2020-06-09 09:30 | NUR ---
RETURNED TO ROOM. VSS. ASSESSMENT COMPLETED.
--- NOTE | 2020-06-09 11:00 | NUR ---
INFANT TO ROOM ACC BY NURSERY RN.
[2020-06-09 12:30] VITALS: BP 112/56
[2020-06-09] MEDS ORDERED: ACETAMINOPHEN 500 MG TAB (TYLENOL) ONE (12:41)
[2020-06-09] MEDS ORDERED: ACETAMINOPHEN 500 MG TAB (TYLENOL) PO PRN (12:45)
--- NOTE | 2020-06-09 13:00 | NUR ---
CARING FOR INFANT IN ROOM/ GOOD INTERACTION NOTED. PT'S MOM AT BEDSIDE.
--- NOTE | 2020-06-09 16:00 | NUR ---
OFFERS NO COMPLAINTS. CONTINUES TO CARE FOR INFANT. HAS BEEN IN TODAY TO ASSIST PRN.
[2020-06-09 17:00] VITALS: BP 102/54
--- NOTE | 2020-06-09 18:15 | NUR ---
EATING DINNER. REMAINS AT BEDSIDE.
[2020-06-09] MEDS ORDERED: IBUPROFEN 800 MG (MOTRIN) TAB PO SCH (18:45)
[2020-06-09 20:57] VITALS: BP 118/66
[2020-06-10 03:32] VITALS: BP 99/56
[2020-06-10] MEDS: IBUPROFEN 800 MG (MOTRIN) TAB PO SCH ×2 (03:33→10:07)
--- NOTE | 2020-06-10 08:46 | Progress Note ---
Standard Progress Note Progress Notes/Assess & Plan Date Seen by a Provider: Jun 10, 2020 Time Seen by a Provider: 08:45 Progress/Assessment & Plan this patient is without complaint. She is ambulating, voiding, tolerating oral intake well has good pain control. Vital Signs 06/08/20 06/09/20 18:00 02:50 Temp 37.2 Pulse 76 Resp 18 B/P (MAP) 98/55 (69) Pulse Ox 98 O2 Delivery Room Air O2 Flow Rate 15.00 vital signs are stable. Patient is afebrile. Fundus is firm below the umbilicus nontender. Extremities show no clubbing or cyanosis. There is no Homans sign. Assessment and plan day number 1 status post term spontaneous vaginal delivery at 38+ weeks gestation. Patient will have routine convalescence care June 10, 2020 Patient is without complaint. She is ambulating, voiding, tolerating oral intake well has good pain control. Vital Signs Date Time Temp Pulse Resp B/P (MAP) Pulse Ox O2 Delivery O2 Flow Rate FiO2 06/10/20 03:32 37.0 74 18 99/56 (70) 99 Room Air 06/09/20 20:57 37.0 74 18 118/66 (83) 96 Room Air 06/09/20 17:00 36.9 71 18 102/54 (70) 97 Room Air 06/09/20 12:30 36.6 72 18 112/56 (74) 97 Room Air 06/09/20 09:30 36.9 78 18 106/58 (74) 97 Room Air vital signs are stable. Patient is afebrile. Fundus is firm below the umbilicus and nontender. Extremities show no clubbing or cyanosis. Homans sign. Assessment and plan STATUS POST day number 2 status post term spontaneous vaginal delivery at 38 gestation plan is for discharge home with follow-up in clinic Final Diagnosis 38 week spontaneous vaginal delivery TIANA JOLLY MD Jun 10, 2020 08:46
[2020-06-10] MEDS ORDERED: ENOXAPARIN 40 MG/0.4 ML (LOVENOX) SYR SC NR (09:00)
[2020-06-10 09:30] VITALS: BP 123/59
--- NOTE | 2020-06-10 09:30 | NUR ---
A.M. ASSESSMENT COMPLETED. VSS. ANXIOUS TO GO HOME TODAY.
[2020-06-10] MEDS: DOCUSATE SODIUM 100 MG (COLACE) CAP PO SCH (10:07)
--- NOTE | 2020-06-10 12:15 | NUR ---
DISCHARGE INSTRUCTIONS REVIEWED WITH COPY TO PT. RX GIVEN. STATES UNDERSTANDING OF ALL INSTRUCTIONS AND NEED TO F/U SCHEDULED AND NEEDED.
[2020-06-10 13:05] VITALS: BP 123/59
--- NOTE | 2020-06-10 13:05 | NUR ---
DISMISSED AMB FROM [facility] WITH IN STABLE CONDITION TO AWAITING FAMILY CAR ACC BY [facility] STAFF.
== END 2020-06-10 13:05 | disposition home or self-care (01) | DRG 807 ==
LOC: LDRP 07:00
PROVIDERS: ADMIT Obstetrics & Gynecology; ATTEND Obstetrics & Gynecology
PROC: 10E0XZZ Delivery of Products of Conception, External Approach (ICD-10-PCS; principal; 2020-06-08)
PROC: 0W8NXZZ Division of Female Perineum, External Approach (ICD-10-PCS; 2020-06-08)
DX: O63.1 Prolonged second stage (of labor) (principal); Z37.0 Single live birth; O76 Abnormality in fetal heart rate and rhythm complicating labor and delivery; Z3A.38 38 weeks gestation of pregnancy; Z79.01 Long term (current) use of anticoagulants; Z86.73 Personal history of transient ischemic attack (TIA), and cerebral infarction without residual deficits
CPT/HCPCS: 36415; 85007; 85027

== ENCOUNTER 2022-05-05 15:40 | Emergency (ER) | payer MEDICAID ==
[~2022-05-05] VITALS: Ht 157 cm; Wt 68.0 kg
[~2022-05-05 15:40] MED LIST changes: +DOCU-239 PO; +IBUP-1780 PO; +OXYC1TAB87 PO
[2022-05-05 16:14] LABS: BASOPHILS % (AUTO) 0 % (0-10); EOSINOPHILS # (AUTO) 0.2 10^3/uL (0.0-0.3); EOSINOPHILS % (AUTO) 2 % (0-10); HEMATOCRIT 38 % (35-52); HEMOGLOBIN 12.3 g/dL (11.5-16.0); LYMPHOCYTES # (AUTO) 2.1 10^3/uL (1.0-4.0); LYMPHOCYTES % (AUTO) 28 % (12-44); MEAN CORPUSCULAR HEMOGLOBIN 30 pg (25-34); MEAN CORPUSCULAR HGB CONC 33 g/dL (32-36); MEAN CORPUSCULAR VOLUME 91 fL (80-99); MEAN PLATELET VOLUME 8.8 fL (9.0-12.2); MONOCYTES # (AUTO) 0.7 10^3/uL (0.0-1.0); MONOCYTES % (AUTO) 9 % (0-12); NEUTROPHILS # (AUTO) 4.5 10^3/uL (1.8-7.8); NEUTROPHILS % (AUTO) 59 % (42-75); PLATELET COUNT 277 10^3/uL (130-400); WHITE BLOOD COUNT 7.5 10^3/uL (4.3-11.0)
[2022-05-05 16:14] LABS: BILIRUBIN,URINE NEGATIVE (NEGATIVE); CLARITY,URINE CLEAR; COLOR,URINE YELLOW; GLUCOSE, URINE (UA) NEGATIVE (NEGATIVE); KETONES,URINE NEGATIVE (NEGATIVE); LEUKOCYTE ESTERASE ,URINE NEGATIVE (NEGATIVE); NITRITE,URINE NEGATIVE (NEGATIVE); PROTEIN,URINE NEGATIVE (NEGATIVE)
[2022-05-05] MEDS ORDERED: KETOROLAC 30 MG/ML VIAL IVP ONE (16:15)
[2022-05-05] MEDS ORDERED: ONDANSETRON 4 MG/2 ML (SDV) Z0FRAN IVP ONE (16:15)
--- NOTE | 2022-05-05 16:24 | ED Abdominal Pain ---
General Chief Complaint: Abdominal/GI Problems Stated Complaint: ABD PAIN Nursing Triage Note: ABD PAIN WITH NAUSEA STARTING SAT. History of Present Illness Date Seen by Provider: May 05, 2022 Time Seen by Provider: 15:50 Initial Comments Patient is a 36 yo F who presents to the ED with abdominal pain that began on Monday. She states the pain started after a fit of coughing. She states she felt a tearing sensation and has immediate pain. She states the pain worsened further a few days ago after lifting her 2 year old daughter. She states she has had some mild nausea with two episodes of vomiting since yesterday. Denies any diarrhea or constipation. No recent known sick contacts. No known recent abd trauma. Denies any urinary symptoms. LMP ended yesterday. No abnormal vaginal discharge. Pt has had BTL. She also endorses a h/o endometriosis. States she has been taking ibuprofen for the symptoms. States the pain worsens with lying flat or coughing. Timing/Duration: 5-6 Days Severity/Quality: Moderate Location: LLQ, Suprapubic Radiation: No Radiation Modifying Factors: Improves With Coughing, Improves With Lying down Allergies and Home Medications Allergies Coded Allergies: No Known Drug Allergies (Unverified , 12/28/16) Patient Home Medication List Home Medication List Reviewed: Yes Docusate Sodium (Dok) 100 Mg Capsule, 100 MG PO BID Prescribed by: TIANA LOCK on 06/09/20810 Ibuprofen (Ibuprofen) 800 Mg Tablet, 800 MG PO Q6H Prescribed by: TIANA LOCK on 06/09/20810 Ketorolac Tromethamine (Ketorolac Tromethamine) 10 Mg Tablet, 10 MG PO Q6H PRN for PAIN-SEE DOSE INSTRUCTIONS Prescribed by: Darrion Barton on 05/05/221816 Ondansetron (Ondansetron Odt) 4 Mg Tab.rapdis, 4 MG PO Q6H PRN for NAUSEA/VOMITING-1ST LINE Prescribed by: Darrion Barton on 05/05/221816 Oxycodone HCl/Acetaminophen (Percocet 5-325 mg Tablet) 1 Each Tablet, 1 TAB PO Q4H PRN for PAIN-MODERATE (5-7) Prescribed by: TIANA LOCK on 06/09/20810 Review of Systems Review of Systems Constitutional: no symptoms reported EENTM: No Symptoms Reported Respiratory: Cough Cardiovascular: No Symptoms Reported Gastrointestinal: Abdominal Pain; Denies Constipated, Denies Diarrhea; Nausea, Vomiting Genitourinary: No Symptoms Reported Musculoskeletal: no symptoms reported Skin: no symptoms reported Psychiatric/Neurological: No Symptoms Reported Past Itxfggg-Bwmuhj-Kdxkgr Hx Patient Social History Tobacco Use?: No Substance use?: No Alcohol Use?: No Immunizations Up To Date Tetanus Booster (TDap): Less than 5yrs PED Vaccines UTD: Yes COVID19 Vaccine Ob/Gyn: UNKNOWN Seasonal Allergies Seasonal Allergies: No Past Medical History Surgeries: Yes (endometrial clean out X 3; LAPAROSCOPIES, LYSIS OF ENDOMETRIOSIS; D&C'S) Adenoidectomy, Appendectomy, Gallbladder, Orthopedic, Tonsillectomy Respiratory: No Cardiac: No Deep Vein Thrombosis Neurological: Yes (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 ) Stroke Reproductive Disorders: Yes (ENDOMETRIOSIS; CHRONIC PELVIC PAIN AND DUB) Female Reproductive Disorders: Denies, Endometriosis Sexually Transmitted Disease: No HIV/AIDS: No Genitourinary: No Gastrointestinal: No Musculoskeletal: No Endocrine: No HEENT: No Loss of Vision: Left Hearing Impairment: Denies Cancer: No Psychosocial: Yes Depression Integumentary: Yes Eczema Blood Disorders: Yes (factor V Leiden WITH DVT'S ) Adverse Reaction/Blood Tranf: No Family Medical History Patient reports no known family medical history. No Pertinent Family Hx Physical Exam Vital Signs Vital Signs - First Documented 05/05/22 15:40 Temp 36.5 Pulse 74 Resp 16 B/P (MAP) 124/83 (97) Pulse Ox 98 O2 Delivery Room Air Capillary Refill : Less Than 3 Seconds Height/Weight/BMI Height: 5'2.00" Weight: 158lbs. 2.0oz. 71.859914en; 27.00 BMI Method:Stated General Appearance: WD/WN, no apparent distress HEENT: PERRL/EOMI, normal ENT inspection, TMs normal, pharynx normal Neck: non-tender, full range of motion, supple, normal inspection Respiratory: chest non-tender, lungs clear, normal breath sounds, no respiratory distress, no accessory muscle use Cardiovascular: normal peripheral pulses, regular rate, rhythm, no edema, no gallop, no JVD, no murmur Gastrointestinal: normal bowel sounds, soft, no organomegaly, no pulsatile mass, tenderness (LLQ and suprapubic regions) Extremities: normal range of motion, non-tender, normal inspection, no pedal edema, no calf tenderness, normal capillary refill, pelvis stable Pelvic: normal external exam, normal adnexa, no cerv. 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, no motor/sensory deficits, alert, normal mood/affect, oriented x 3 Skin: normal color, warm/dry Progress/Results/Core Measures Results/Orders Lab Results Laboratory Tests Test 05/05/22 15:55 05/05/22 16:05 Range/Units Urine Color YELLOW Urine Clarity CLEAR Urine pH 7.0 5-9 Urine Specific [place] 1.010 L 1.016-1.022 Urine Protein NEGATIVE NEGATIVE Urine Glucose (UA) NEGATIVE NEGATIVE Urine Ketones NEGATIVE NEGATIVE Urine Nitrite NEGATIVE NEGATIVE Urine Bilirubin NEGATIVE NEGATIVE Urine Urobilinogen 0.2 < = 1.0 MG/DL Urine Leukocyte Esterase NEGATIVE NEGATIVE Urine RBC (Auto) TRACE-I H NEGATIVE Urine RBC NONE /HPF Urine WBC NONE /HPF Urine Squamous Epithelial Cells 0-2 /HPF Urine Crystals NONE /LPF Urine Bacteria NEGATIVE /HPF Urine Casts NONE /LPF Urine Mucus NEGATIVE /LPF Urine Culture Indicated NO White Blood Count 7.5 4.3-11.0 10^3/uL Red Blood Count 4.13 3.80-5.11 10^6/uL Hemoglobin 12.3 11.5-16.0 g/dL Hematocrit 38 35-52 % Mean Corpuscular Volume 91 80-99 fL Mean Corpuscular Hemoglobin 30 25-34 pg Mean Corpuscular Hemoglobin Concent 33 32-36 g/dL Red Cell Distribution Width 12.5 10.0-14.5 % Platelet Count 277 130-400 10^3/uL Mean Platelet Volume 8.8 L 9.0-12.2 fL Immature Granulocyte % (Auto) 1 % Neutrophils (%) (Auto) 59 42-75 % Lymphocytes (%) (Auto) 28 12-44 % Monocytes (%) (Auto) 9 0-12 % Eosinophils (%) (Auto) 2 0-10 % Basophils (%) (Auto) 0 0-10 % Neutrophils # (Auto) 4.5 1.8-7.8 10^3/uL Lymphocytes # (Auto) 2.1 1.0-4.0 10^3/uL Monocytes # (Auto) 0.7 0.0-1.0 10^3/uL Eosinophils # (Auto) 0.2 0.0-0.3 10^3/uL Basophils # (Auto) 0.0 0.0-0.1 10^3/uL Immature Granulocyte # (Auto) 0.1 0.0-0.1 10^3/uL Sodium Level 139 135-145 MMOL/L Potassium Level 4.1 3.6-5.0 MMOL/L Chloride Level 106 98-107 MMOL/L Carbon Dioxide Level 23 21-32 MMOL/L Anion Gap 10 5-14 MMOL/L Blood Urea Nitrogen 8 7-18 MG/DL Creatinine 0.68 0.60-1.30 MG/DL Estimat Glomerular Filtration Rate 115 BUN/Creatinine Ratio 12 Glucose Level 91 70-105 MG/DL Calcium Level 8.8 8.5-10.1 MG/DL Corrected Calcium 8.5 8.5-10.1 MG/DL Total Bilirubin 0.4 0.1-1.0 MG/DL Aspartate Amino Transf (AST/SGOT) 17 5-34 U/L Alanine Aminotransferase (ALT/SGPT) 12 0-55 U/L Alkaline Phosphatase 51 40-136 U/L Total Protein 7.2 6.4-8.2 GM/DL Albumin 4.4 3.2-4.5 GM/DL My Orders Orders - DARRION BARTON APRN Comprehensive Metabolic Panel (05/05/22 16:03) Ua Culture If Indicated (05/05/22 16:03) Cbc With Automated Diff (05/05/22 16:03) Ct Abdomen/Pelvis W (05/05/22 16:03) Ketorolac Injection (Toradol Injection) (05/05/22 16:15) Ondansetron Injection (Zofran Injectio (05/05/22 16:15) Iohexol Injection (Omnipaque 350 Mg/Ml 1 (05/05/22 16:30) Sodium Chloride Flush (Catheter Flush Sy (05/05/22 16:30) Ns (Ivpb) (Sodium Chloride 0.9% Ivpb Bag (05/05/22 16:30) Medications Given in ED Current Medications Medications Dose Ordered Sig/Pam Route Start Time Stop Time Status Last Admin Dose Admin Iohexol 100 ml ONCE ONCE IV 05/05/22 16:30 05/05/22 16:31 DC 05/05/22 16:48 78 ML Ketorolac Tromethamine 15 mg ONCE ONCE IVP 05/05/22 16:15 05/05/22 16:16 DC 05/05/22 16:23 15 MG Ondansetron HCl 4 mg ONCE ONCE IVP 05/05/22 16:15 05/05/22 16:16 DC 05/05/22 16:22 4 MG Sodium Chloride 10 ml NEEDED PRN IV 05/05/22 16:30 05/05/22 16:48 10 ML Sodium Chloride 100 ml ONCE ONCE IV 05/05/22 16:30 05/05/22 16:31 DC 05/05/22 16:48 80 ML Vital Signs/I&O 05/05/22 15:40 Temp 36.5 Pulse 74 Resp 16 B/P (MAP) 124/83 (97) Pulse Ox 98 O2 Delivery Room Air Blood Pressure Mean: 97 Progress Progress Note : Progress Note Patient is nontoxic and well hydrated on exam. Vital signs are reassuring. Abdominal exam is notable for mild TTP of the LLQ and suprapubic regions. No guarding or rebound noted. Laboratory evaluation is reassuring. Urinalysis reassuring. CT of the abd/pelvis with contrast notable for left ovarian cyst but is otherwise acutely negative. Etiology of symptoms may also be abdominal musculature strain given acute onset with tearing sensation. No evidence of any pathology requiring surgery or hospitalization. Discussed supportive care and follow-up with PCP. Return precautions for urgent symptomology discussed. Patient verbalized understanding. Departure Impression Primary Impression: Abdominal pain Qualified Codes: R10.30 - Lower abdominal pain, unspecified Disposition: 01 HOME, SELF-CARE Condition: Stable Departure-Patient Inst. Referrals: KRISTEN RGANT MD (PCP/Family) Primary Care Physician Patient Instructions: Abdominal Pain, Adult ED Scripts Ondansetron (Ondansetron Odt) 4 Mg Tab.rapdis 4 MG PO Q6H PRN for NAUSEA/VOMITING-1ST LINE for 7 Days, #20 TAB Prov: DARRION BARTON APRN 05/05/22 Ketorolac Tromethamine (Ketorolac Tromethamine) 10 Mg Tablet 10 MG PO Q6H PRN for PAIN-SEE DOSE INSTRUCTIONS for 5 Days, #20 TAB Prov: DARRION BARTON APRN 05/05/22 DARRION BARTON APRN May 05, 2022 16:24
[2022-05-05] MEDS ORDERED: IOHEXOL 350 MG/ML 100 ML (OMNIPAQUE 350) VIAL IV ONE (16:30)
[2022-05-05] MEDS ORDERED: NS 100 ML (IVPB) BAG IV ONE (16:30)
[2022-05-05] MEDS ORDERED: CATHETER FLUSH 10 ML SYR IV PRN (16:30)
[2022-05-05 16:31] LABS: ALBUMIN 4.4 GM/DL (3.2-4.5)
[2022-05-05 16:31] LABS: BACTERIA,URINE NEGATIVE /HPF; SQUAMOUS EPITHELIAL CELL,UR 0-2 /HPF
[2022-05-05 16:32] LABS: POTASSIUM 4.1 MMOL/L (3.6-5.0)
[2022-05-05 16:33] LABS: CALCIUM 8.8 MG/DL (8.5-10.1)
[2022-05-05 16:34] LABS: TOTAL PROTEIN 7.2 GM/DL (6.4-8.2)
[2022-05-05 16:36] LABS: BILIRUBIN,TOTAL 0.4 MG/DL (0.1-1.0)
[2022-05-05 16:38] LABS: CREATININE SERUM 0.68 MG/DL (0.60-1.30)
--- NOTE | 2022-05-05 16:58 | Diagnostic Imaging Report ---
PROCEDURE: CT abdomen and pelvis with contrast. TECHNIQUE: Multiple contiguous axial images were obtained through the abdomen and pelvis after administration of intravenous contrast. Auto Exposure Controls were utilized during the CT exam to meet ALARA standards for radiation dose reduction. All CT scans use one or more of the following dose optimizing techniques: automated exposure control, MA and/or KvP adjustment based on patient size and exam type or iterative reconstruction. DATE: May 05, 2022. COMPARISON: None. INDICATION: 36-year-old female, lower abdominal pain. FINDINGS: There is mild dependent atelectasis in the lower lobes. The heart is not enlarged. There is no pericardial effusion. The liver is unremarkable in size and contour. The liver is unremarkable in size and contour. There is low-attenuation adjacent to the ligamentum teres which may relate to an area of focal fat given the characteristic location. The main, right, left portal veins are patent. There are calcifications in the liver which are most likely benign although of unclear exact etiology. The gallbladder surgically absent. There is no biliary ductal dilation. The main pancreatic duct is not abnormally dilated. Unremarkable appearance of the pancreas. The spleen is normal in size. The adrenal glands are unremarkable. There is a 4 mm nonobstructing right renal stone on axial image 45 and a 5 mm nonobstructing left renal stone on axial image 43. The urinary collecting systems are not distended. There is no identified renal or ureteral stone. There is a left-sided pelvic calcifications likely reflecting phlebolith. The urinary bladder is unremarkable. There is a probable left ovarian follicle on axial image 126. The intestinal tract is not distended. There is no evidence of acute appendicitis. There is no free intraperitoneal air. There is no sizable free fluid in the abdomen or pelvis. There is no identified drainable fluid collection. There is no identified abnormally enlarged lymph node in the abdomen or pelvis which meets CT size criteria for adenopathy. There is no identified acute bony abnormality. 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 IMPRESSION: CT ABDOMEN AND PELVIS. 1. No identified acute abnormality in the abdomen or pelvis. 2. Probable left ovarian follicle. 3. Nonobstructing renal stones without identified ureteral stone or hydronephrosis. Dictated by: Dictated on workstation # [id number]
[2022-05-05] MEDS ORDERED: ONDA4TAB11 PO (18:17)
[2022-05-05] MEDS ORDERED: KETO10TA PO (18:17)
[2022-05-05 18:49] VITALS: BP 100/78
== END 2022-05-05 18:40 | disposition home or self-care (01) ==
LOC: EDUNIT# 15:40 → ER 15:42
DX: R10.32 Left lower quadrant pain (principal); R11.2 Nausea with vomiting, unspecified; Z90.49 Acquired absence of other specified parts of digestive tract
CPT/HCPCS: 36415; 74177; 80053; 81000; 85025

== ENCOUNTER 2022-07-10 19:28 | Emergency (ER) | payer MEDICAID ==
[~2022-07-10 19:28] MED LIST changes: +ONDA4TAB11 PO
[2022-07-10] MEDS ORDERED: PROMETHAZINE/ CODEINE SYRUP 5 ML UDC PO STA (19:51)
--- NOTE | 2022-07-10 20:03 | ED Cough/URI ---
General Chief Complaint: Cough/Cold/Flu Symptoms Stated Complaint: COUGH/RIGHT SIDE CHEST PAIN/FEVER/BODYACHES Nursing Triage Note: PT ARRIVAL TO ER VIA PRIVATE VEHICLE FROM HOME WITH COMPLAINTS OF COUGH, CONGESTION, FEVER X2 WEEKS. PT HAS BEEN ALTERNATING IBUPROFEN/TYLENOL AT HOME. PT IS AFEBRILE IN ER. PATIENT IS COVID AND FLU VACCINATED. (MARCO REHMAN) History of Present Illness Date Seen by Provider: Jul 10, 2022 Time Seen by Provider: 19:45 Initial Comments 36-year-old female presents for chest congestion and pain related to a cough that she has had for approximately 2 weeks she reports fever and body aches today. She is vaccinated for COVID and influenza. No known exposure. She tried breathing treatments with no improvement. She mainly complains of right-sided chest wall pain with deep inspiration or cough. Timing/Duration: intermittent Severity/Quality: moderate, dry cough Prior Episodes/Possible Cause: occasional episodes Associated Symptoms: chest pain/soreness, cough, fever/chills, muscle aches (MARCO REHMAN) Allergies and Home Medications Allergies Coded Allergies: No Known Drug Allergies (Unverified , 12/28/16) Patient Home Medication List Home Medication List Reviewed: Yes (MARCO REHMAN) Docusate Sodium (Dok) 100 Mg Capsule, 100 MG PO BID Prescribed by: TIANA LOCK on 06/09/20 08 Guaifenesin/Codeine (Robitussin Ac (Codeine) Syrup) 10 Ml Syrp, 10 ML PO Q6H PRN for COUGH Prescribed by: MARIA GUADALUPE MARCH on 07/11/22 1435 Ibuprofen (Ibuprofen) 800 Mg Tablet, 800 MG PO Q6H Prescribed by: TIANA LOCK on 06/09/20 08 Ketorolac Tromethamine (Ketorolac Tromethamine) 10 Mg Tablet, 10 MG PO Q6H PRN for PAIN-SEE DOSE INSTRUCTIONS Prescribed by: Darrion Rubalcava on 05/05/221816 Ondansetron (Ondansetron Odt) 4 Mg Tab.rapdis, 4 MG PO Q6H PRN for NAUSEA/VOMITING-1ST LINE Prescribed by: Darrion Rubalcava on 05/05/221816 Oxycodone HCl/Acetaminophen (Percocet 5-325 mg Tablet) 1 Each Tablet, 1 TAB PO Q4H PRN for PAIN-MODERATE (5-7) Prescribed by: TIANA LOCK on 06/09/20 0811 Discontinued Medications Promethazine HCl/Codeine (Prometh-Codein 6.25-10 mg/5 ml) 6.25 Mg-10 Mg/5 Ml (5 Ml) Syrup, 5 ML PO Q6H PRN for COUGH Prescribed by: PETE WISEMAN on 07/11/22 1424 Last Action: New Order Review of Systems Review of Systems Constitutional: see HPI, fever, malaise EENTM: see HPI, no symptoms reported Respiratory: see HPI, cough, other (chest wall pain with cough or deep inspiration) Gastrointestinal: no symptoms reported, see HPI : No (tubal ligation) (MARCO REHMAN) All Other Systems Reviewed Negative Unless Noted: Yes (MARCO REHMAN) Past [place]-Fwekfw-Iqiegu Hx Patient Social History Tobacco Use?: No Use of E-Cig and/or Vaping dev: No Substance use?: No Alcohol Use?: No Pt feels they are or have been: No (MARCO REHMAN) Immunizations Up To Date Tetanus Booster (TDap): Less than 5yrs PED Vaccines UTD: Yes Influenza Vaccine Up-to-Date: Yes; Up-to-Date First/Initial COVID19 Vaccinat: UNKNOWN DATE Second COVID19 Vaccination Jac: UNKNOWN DATE Third COVID19 Vaccination Date: UNKNOWN DATE COVID19 Vaccine Training Director: JACOBO (MARCO REHMAN) Seasonal Allergies Seasonal Allergies: No (MARCO REHMAN) Past Medical History Surgeries: Yes (endometrial clean out X 3; LAPAROSCOPIES, LYSIS OF ENDOMETRIOSIS; D&C'S) Adenoidectomy, Appendectomy, Gallbladder, Orthopedic, Tonsillectomy Respiratory: No Cardiac: No Deep Vein Thrombosis Neurological: Yes (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 ) Stroke Reproductive Disorders: Yes (ENDOMETRIOSIS; CHRONIC PELVIC PAIN AND DUB) Female Reproductive Disorders: Denies, Endometriosis Sexually Transmitted Disease: No HIV/AIDS: No Genitourinary: No Gastrointestinal: No Musculoskeletal: No Endocrine: No HEENT: No Loss of Vision: Left Hearing Impairment: Denies Cancer: No Psychosocial: Yes Depression Integumentary: Yes Eczema Blood Disorders: Yes (factor V Leiden WITH DVT'S ) Adverse Reaction/Blood Tranf: No (MARCO REHMAN) Family Medical History Reviewed Nursing Family Hx (MARCO REHMAN) Patient reports no known family medical history. No Pertinent Family Hx (MARCO REHMAN) Physical Exam Vital Signs - First Documented (MARIA GUADALUPE MARCH APRN) Capillary Refill : Less Than 3 Seconds (MARCO REHMAN) Height: 5'2.00" Weight: 158lbs. 2.0oz. 71.597199ab; 27.00 BMI Method:Stated General Appearance: WD/WN, no apparent distress Eyes: Bilateral Eye Normal Inspection, Bilateral Eye PERRL, Bilateral Eye EOMI HEENT: PERRL/EOMI, normal ENT inspection, TMs normal, pharynx normal Neck: non-tender, full range of motion, supple, normal inspection Respiratory: chest non-tender, lungs clear, normal breath sounds Cardiovascular: normal peripheral pulses, regular rate, rhythm Gastrointestinal: normal bowel sounds, non tender, soft Neurologic/Psychiatric: no motor/sensory deficits, alert, normal mood/affect, oriented x 3 Skin: normal color, warm/dry (MARCO REHMAN) Progress/Results/Core Measures Suspected Sepsis SIRS Temperature: Pulse: 94 Respiratory Rate: 16 Blood Pressure 121 /75 Mean: 90 (MARCO REHMAN SALLIE) Results/Orders Lab Results Laboratory Tests Test 07/10/22 20:00 Range/Units Influenza Type A (RT-PCR) Detected H Not Detecte Influenza Type B (RT-PCR) Not Detected Not Detecte SARS-CoV-2 RNA (RT-PCR) Not Detected Not Detecte (MARIA GUADALUPE MARCH APRN) Vital Signs/I&O 07/10/22 07/10/22 07/10/22 19:45 19:45 21:06 Temp 37.2 Pulse 94 98 Resp 16 16 B/P (MAP) 121/75 (90) 105/68 Pulse Ox 99 100 O2 Delivery Room Air Room Air Room Air (MARIA GUADALUPE MARCH APRN) Vital Signs/I&O Capillary Refill : Less Than 3 Seconds (SHERIEMARCO RIZO) Blood Pressure Mean: 90 Progress Note : Time: 19:45 Progress Note Patient seen and evaluated, will obtain chest x-ray and COVID/flu test. Phenergan with codeine for cough and chest pain. 2044 patient declined Tamiflu. Will use supportive care. Discharge instructions and return precautions reviewed. (MARCO REHMAN) Progress Note : Progress Note 07/11/2022 1430: [facility] called and updated no Phenergan with Codeine, sent in rx for Robitussin AC. (MARIA GUADALUPE MARCH APRN) Diagnostic Imaging Diagonstic Imaging: Xray Plain Films/CT/US/NM/MRI: chest Comments NAME: UZAIR FISCHER [facility] REC#: [id number] PT STATUS: REG ER : 1985 PHYSICIAN: MARCO REHMAN ADMIT DATE: 07/10/22/ER Signed Date of Exam:07/10/22 CHEST 1 VIEW, AP/PA ONLY EXAMINATION: Chest 1 view. HISTORY: Chest pain. Cough. COMPARISON: None available. FINDINGS: The lung volumes are normal. No focal consolidation is seen. No large pleural effusion or pneumothorax is seen. The cardiomediastinal silhouette is normal in size and contour. No acute osseous abnormality is seen. IMPRESSION: No acute pleuroparenchymal process. Dictated by: Dictated on workstation # [id number] Dict: 07/10/222013 Trans: 07/10/222016 [facility] [id number] Interpreted by: RENETTA MARTÍNEZ DO Electronically signed by: RENETTA MARTÍNEZ DO 07/10/222016 Reviewed: Reviewed by Me (MARCO REHMAN) Departure Impression Primary Impression: Pleuritic chest pain Additional Impressions: Cough Qualified Codes: R05.1 - Acute cough Influenza A Disposition: 01 HOME, SELF-CARE Condition: Improved Departure-Patient Inst. Decision time for Depature: 20:40 (MARCO REHMAN) Referrals: KRISTEN GRANT MD (PCP/Family) Primary Care Physician Patient Instructions: Cough, Adult (DC), Flu, Adult (DC) Add. Discharge Instructions: Alternate Tylenol 650 mg and ibuprofen 600 mg every 4 hours for fever or discomfort. Use the Phenergan with codeine cough suppressant as needed for cough and congestion. Stay home and limit any contact with others for the next 5 days, you should also be fever free for at least 24 hours without medication. Increase water intake, It is important to walk and move around. Follow-up with your primary care provider if symptoms are not improving or worsen. Return to the emergency department for new, urgent healthcare needs. All discharge instructions reviewed with patient and/or family. Voiced understanding. Scripts Guaifenesin/Codeine (ROBITUSSIN AC (CODEINE) SYRUP) 10 Ml Syrp 10 ML PO Q6H PRN for COUGH, #100 ML 0 Refills Prov: MARIA GUADALUPE MARCH MOTOR RACER 07/11/22 PHYSICIAN ATTESTATION NOTE: I was present in the ER while SITE LEASING AGENT / PA saw the patient, but I was not involved in the care, exam, or management of the patient. (ROXANA SERRANO MD) Copy Copies To 1: KRISTEN GRANT MD, AMY ARNP Jul 10, 2022 20:03 MARIA GUADALUPE MARCH MOTOR RACER Jul 11, 2022 14:35 ROXANA SERRANO MD Jul 13, 2022 06:41
--- NOTE | 2022-07-10 20:17 | Diagnostic Imaging Report ---
EXAMINATION: Chest 1 view. HISTORY: Chest pain. Cough. COMPARISON: None available. FINDINGS: The lung volumes are normal. No focal consolidation is seen. No large pleural effusion or pneumothorax is seen. The cardiomediastinal silhouette is normal in size and contour. No acute osseous abnormality is seen. IMPRESSION: No acute pleuroparenchymal process. Dictated by: Dictated on workstation # [id number]
[2022-07-10] MEDS ORDERED: PROM5SYR PO (21:02)
[2022-07-10 21:06] VITALS: BP 105/68
[2022-07-11] MEDS ORDERED: PROM5SYR PO (14:23)
[2022-07-11] MEDS ORDERED: GFCD10B PO (14:34)
== END 2022-07-10 21:12 | disposition home or self-care (01) ==
LOC: EDUNIT# 19:28 → ER 19:31
DX: J10.1 Influenza due to other identified influenza virus with other respiratory manifestations (principal); R07.81 Pleurodynia; Z20.822 Contact with and (suspected) exposure to COVID-19
CPT/HCPCS: 71045; 87636